=== PATIENT | female | born 1930 | race Caucasian/White ===

== ENCOUNTER 2016-09-16 16:37 | Outpatient (CLI) | payer MEDICARE, OTHER | END 2016-09-16 16:38 | disposition EMS.NT | LOC: EMS 16:37 | PROVIDERS: ATTEND Surgery | DX: R04.0 Epistaxis (principal); W01.0XXA Fall on same level from slipping, tripping and stumbling without subsequent striking against object, initial encounter; Y92.008 Other place in unspecified non-institutional (private) residence as the place of occurrence of the external cause ==

== ENCOUNTER 2016-10-31 03:09 | Outpatient (CLI) | payer MEDICARE, OTHER | END 2016-10-31 03:10 | disposition E | LOC: EMS 03:09 | PROVIDERS: ATTEND Surgery ==